=== PATIENT | female | born 1935 | race Caucasian/White ===

== ENCOUNTER 2019-03-31 15:40 | Inpatient (IN) | payer MEDICARE ==
[~2019-03-31] VITALS: Ht 157.5 cm; Wt 55.7 kg
--- NOTE | 2019-03-31 16:30 | NUR ---
[facility]
--- NOTE | 2019-03-31 16:45 | NUR ---
PT PLACED ON ALL ROOM MONITORING. NSR ON MONITOR, RA SAT 94%. WARM BLANKET PROVIDED, CALL LIGHT WITHIN REACH. FAMILY AT BS.
[2019-03-31] MEDS ORDERED: ONDANSETRON 2MG/ML, 2ML ONE (17:12)
--- NOTE | 2019-03-31 17:22 | NUR ---
PT BACK FROM CT. ZOFRAN GIVEN PER ERP ORDER FOR NAUSEA. LAB IN TO DRAW. POC EXPLAINED TO PT AND FAMILY. CALL LIGHT WITHIN REACH.
[2019-03-31 17:35] LABS: BASOPHILS % (AUTO) 0 % (0-1); EOSINOPHILS # (AUTO) 0.18 x10^3/uL (0-0.4); EOSINOPHILS % (AUTO) 2 % (1-7); LYMPHOCYTES # (AUTO) 0.86 x10^3/uL (1-3.4); LYMPHOCYTES % (AUTO) 7 % (22-44); MD NO; MEAN CORPUSCULAR HEMOGLOBIN 32.1 pg (27.0-34.8); MEAN CORPUSCULAR HGB CONC 32.9 g/dL (32.4-35.8); MEAN CORPUSCULAR VOLUME 97.7 fL (80-100); MEAN PLATELET VOLUME 7.5 fL (7.4-10.4); MONOCYTES # (AUTO) 0.47 x10^3/uL (0.2-0.8); MONOCYTES % (AUTO) 4 % (2-9); NEUTROPHILS # (AUTO) 10.32 x10^3/uL (1.8-6.8); NEUTROPHILS % (AUTO) 87 % (42-75); PLATELET COUNT 309 x10^3/uL (130-400); RED BLOOD COUNT 4.36 x10^6/uL (3.82-5.3); RED CELL DISTRIBUTION WIDTH 14.3 % (9.6-15.2)
--- NOTE | 2019-03-31 17:41 | NUR ---
ST CATH FOR UA/COLLECTED/SENT TO LAB.
[2019-03-31 17:42] LABS: ALANINE AMINOTRANSFERASE 15 U/L (12-78); ALBUMIN 2.9 g/dL (3.4-5.0); ANION GAP 8 mmol/L (5-15); CALCIUM 9.2 mg/dL (8.5-10.1); CHLORIDE 103 mmol/L (98-107); INTERNATIONAL NORMALIZED RATIO 0.98 (0.93-1.1); PROTHROMBIN TIME 10.4 Seconds (9.6-11.5)
[2019-03-31 17:45] LABS: ALKALINE PHOSPHATASE 88 U/L (45-117); BILIRUBIN,TOTAL 0.6 mg/dL (0.2-1.0); TOTAL PROTEIN 7.3 g/dL (6.4-8.2)
[2019-03-31] MEDS ORDERED: ESTR0.5T PO (17:45)
[2019-03-31] MEDS ORDERED: METO25TA35 PO (17:45)
[2019-03-31] MEDS ORDERED: ASPI-496 PO (17:45)
[2019-03-31] MEDS ORDERED: AMLO10TA8 PO (17:45)
[2019-03-31] MEDS ORDERED: APIX2.5T PO (17:45)
[2019-03-31 17:53] LABS: MICROSCOPIC AUTO
[2019-03-31 17:55] LABS: CULTURE INDICATED? NO
[2019-03-31] MEDS ORDERED: ONDANSETRON 2MG/ML, 2ML IVPush ONE (18:00)
[2019-03-31] MEDS ORDERED: SODIUM CHLORIDE FLUSH 10ML SYR IVF ONE (18:00)
--- NOTE | 2019-03-31 18:05 | NUR ---
ALL RESULTS BACK, PT FOR RECHECK.
--- NOTE | 2019-03-31 18:18 | NUR ---
PT ASSISTED UP TO BSC. SISTER AT BS.
--- NOTE | 2019-03-31 18:57 | NUR ---
report from mack lunsford
--- NOTE | 2019-03-31 18:58 | NUR ---
pt to be rechecked by JO-ANN Interiano
--- NOTE | 2019-03-31 19:03 | NUR ---
REPORT TO YOBANY, TRANSFER OF CARE AT THIS TIME.
[2019-03-31] MEDS ORDERED: SODIUM CHLORIDE FLUSH 10ML SYR IVF PRN (19:30)
--- NOTE | 2019-03-31 19:30 | NUR ---
pt reports her n/v has improved after IV zofran. pt states she has nausea now only when getting up to the cammode and moving around.
--- NOTE | 2019-03-31 19:30 | NUR ---
Sister Naomy, phone [phone]
--- NOTE | 2019-03-31 19:50 | NUR ---
report to hardeep
[2019-03-31 20:13] VITALS: BP 168/85
--- NOTE | 2019-03-31 20:23 | NUR ---
[facility] chart received. tubed to station 242
[2019-04-01] MEDS ORDERED: SODIUM CHLORIDE 0.9% 1,000 ML IV SCH (00:30)
[2019-04-01] MEDS ORDERED: hydrALAzine 20 MG/ML, 1ML IVPush PRN (00:30)
[2019-04-01] MEDS ORDERED: BISACODYL 10 MG SUPP PR PRN (00:30)
[2019-04-01 01:26] VITALS: BP 141/88
[2019-04-01] MEDS: ONDANSETRON 2MG/ML, 2ML IVPush PRN ×4 (03:21→22:31)
[2019-04-01 05:32] LABS: BASOPHILS # (AUTO) 0.04 x10^3/uL (0-0.1); BASOPHILS % (AUTO) 1 % (0-1); EOSINOPHILS # (AUTO) 0.04 x10^3/uL (0-0.4); EOSINOPHILS % (AUTO) 1 % (1-7); LYMPHOCYTES # (AUTO) 0.75 x10^3/uL (1-3.4); LYMPHOCYTES % (AUTO) 8 % (22-44); MD NO; MEAN CORPUSCULAR HEMOGLOBIN 32.2 pg (27.0-34.8); MEAN CORPUSCULAR HGB CONC 32.7 g/dL (32.4-35.8); MEAN CORPUSCULAR VOLUME 98.5 fL (80-100); MEAN PLATELET VOLUME 7.5 fL (7.4-10.4); MONOCYTES # (AUTO) 0.52 x10^3/uL (0.2-0.8); MONOCYTES % (AUTO) 5 % (2-9); NEUTROPHILS # (AUTO) 8.36 x10^3/uL (1.8-6.8); NEUTROPHILS % (AUTO) 86 % (42-75); PLATELET COUNT 272 x10^3/uL (130-400); RED BLOOD COUNT 4.32 x10^6/uL (3.82-5.3); RED CELL DISTRIBUTION WIDTH 13.8 % (9.6-15.2)
[2019-04-01 05:38] LABS: ANION GAP 6 mmol/L (5-15); CALCIUM 9.7 mg/dL (8.5-10.1); CHLORIDE 104 mmol/L (98-107)
[2019-04-01 05:40] LABS: CREATININE 1.24 mg/dL (0.55-1.02)
[2019-04-01 07:01] VITALS: BP 182/79
[2019-04-01 07:36] VITALS: BP 184/83
[2019-04-01] MEDS ORDERED: AMLODIPINE 10 MG TAB PO SCH (09:00)
[2019-04-01] MEDS ORDERED: METOPROLOL TARTRATE 25 MG TABLET PO SCH (09:00)
[2019-04-01] MEDS ORDERED: APIXABAN 2.5 MG TABLET PO SCH (09:00)
[2019-04-01] MEDS: ASPIRIN 81 MG TABLET EC PO SCH (09:00)
[2019-04-01 09:11] VITALS: BP 161/79
[2019-04-01] MEDS: ESTRADIOL 0.5 MG TABLET PO SCH (10:33)
[2019-04-01] MEDS: SENNA/DOCUSATE TABLET PO SCH (10:33)
[2019-04-01 12:29] VITALS: BP 163/69
[2019-04-01] MEDS ORDERED: PROCHLORPERAZINE 10MG TABLET PO PRN (12:30)
[2019-04-01] MEDS: PANTOPRAZOLE 40 MG IV IVPush SCH (16:23)
[2019-04-01] MEDS ORDERED: DEXAMETHASONE 4 MG/ML, 1ML IVPush ONE (18:00)
[2019-04-01] MEDS ORDERED: GADOTERATE 5 MMOL/10 ML VIAL ONE (18:23)
[2019-04-01 19:17] VITALS: BP 166/69
[2019-04-01] MEDS: METOPROLOL TARTRATE 25 MG TABLET PO SCH (19:30)
[2019-04-01] MEDS: CHLORTHALIDONE 25 MG TABLET PO SCH (20:00)
[2019-04-01] MEDS: DEXAMETHASONE 4 MG/ML, 1ML IVPush SCH (22:08)
[2019-04-01] MEDS: SODIUM CHLORIDE 0.9% 1,000 ML IV SCH (22:10)
[2019-04-02] MEDS: AMLODIPINE 10 MG TAB PO SCH ×2 (00:02→09:42)
[2019-04-02] MEDS: METOPROLOL TARTRATE 25 MG TABLET PO SCH ×3 (00:03→20:34)
[2019-04-02 00:09] VITALS: BP 174/77
[2019-04-02 01:07] VITALS: BP 161/75
[2019-04-02] MEDS: ONDANSETRON 2MG/ML, 2ML IVPush PRN (04:38)
[2019-04-02] MEDS: PANTOPRAZOLE 40 MG IV IVPush SCH ×2 (04:39→18:13)
[2019-04-02] MEDS: DEXAMETHASONE 4 MG/ML, 1ML IVPush SCH ×4 (04:39→22:16)
[2019-04-02 08:00] VITALS: BP 148/68
[2019-04-02] MEDS: ASPIRIN 81 MG TABLET EC PO SCH (09:41)
[2019-04-02] MEDS: CHLORTHALIDONE 25 MG TABLET PO SCH (09:42)
[2019-04-02] MEDS: SENNA/DOCUSATE TABLET PO SCH (09:42)
[2019-04-02] MEDS: ESTRADIOL 0.5 MG TABLET PO SCH (09:43)
[2019-04-02 12:37] VITALS: BP 172/82
[2019-04-02] MEDS: SODIUM CHLORIDE 0.9% 1,000 ML IV SCH (16:25)
[2019-04-02 19:00] VITALS: BP 159/75
[2019-04-02] MEDS: APIXABAN 2.5 MG TABLET PO SCH (20:34)
[2019-04-02] MEDS: COMBIGAN OPTH EACHEYE SCH (20:35)
[2019-04-02] MEDS: LUMIGAN 0.01% EACHEYE SCH (20:35)
[2019-04-02] MEDS: OPTHALMIC EACHEYE SCH (20:35)
[2019-04-03 00:43] VITALS: BP 133/59
[2019-04-03] MEDS: SODIUM CHLORIDE 0.9% 1,000 ML IV SCH ×3 (03:28→22:44)
[2019-04-03] MEDS: DEXAMETHASONE 4 MG/ML, 1ML IVPush SCH ×4 (03:29→21:55)
[2019-04-03 04:31] LABS: MEAN CORPUSCULAR HGB CONC 32.7 g/dL (32.4-35.8); MEAN PLATELET VOLUME 7.7 fL (7.4-10.4); PLATELET COUNT 256 x10^3/uL (130-400); RED BLOOD COUNT 3.67 x10^6/uL (3.82-5.3); RED CELL DISTRIBUTION WIDTH 14.1 % (9.6-15.2)
[2019-04-03 04:35] LABS: ALANINE AMINOTRANSFERASE 61 U/L (12-78); ALBUMIN 2.6 g/dL (3.4-5.0); ANION GAP 9 mmol/L (5-15); CALCIUM 8.8 mg/dL (8.5-10.1); CHLORIDE 107 mmol/L (98-107)
[2019-04-03 04:38] LABS: ALKALINE PHOSPHATASE 91 U/L (45-117); BILIRUBIN,TOTAL 0.5 mg/dL (0.2-1.0); CREATININE 1.16 mg/dL (0.55-1.02); TOTAL PROTEIN 6.2 g/dL (6.4-8.2)
[2019-04-03 04:50] LABS: BASOPHILS # (AUTO) 0.05 x10^3/uL (0-0.1); BASOPHILS % (AUTO) 1 % (0-1); EOSINOPHILS % (AUTO) 0 % (1-7); LYMPHOCYTES # (AUTO) 0.44 x10^3/uL (1-3.4); LYMPHOCYTES % (AUTO) 6 % (22-44); MD SCAN; MONOCYTES # (AUTO) 0.12 x10^3/uL (0.2-0.8); MONOCYTES % (AUTO) 2 % (2-9); NEUTROPHILS # (AUTO) 7.37 x10^3/uL (1.8-6.8); NEUTROPHILS % (AUTO) 92 % (42-75)
[2019-04-03] MEDS: PANTOPRAZOLE 40 MG IV IVPush SCH ×2 (05:59→16:09)
[2019-04-03 06:46] VITALS: BP 151/73
[2019-04-03] MEDS ORDERED: POTASSIUM CHLORIDE 20 MEQ TAB.ER.PRT PO ONE ×2 (08:30→11:30)
[2019-04-03] MEDS: COMBIGAN OPTH EACHEYE SCH ×2 (09:00→20:03)
[2019-04-03] MEDS: APIXABAN 2.5 MG TABLET PO SCH ×2 (09:17→21:55)
[2019-04-03] MEDS: SENNA/DOCUSATE TABLET PO SCH (09:17)
[2019-04-03] MEDS: ESTRADIOL 0.5 MG TABLET PO SCH (09:17)
[2019-04-03] MEDS: AMLODIPINE 10 MG TAB PO SCH (09:18)
[2019-04-03] MEDS: METOPROLOL TARTRATE 25 MG TABLET PO SCH ×2 (09:18→21:55)
[2019-04-03] MEDS: ASPIRIN 81 MG TABLET EC PO SCH (09:18)
[2019-04-03] MEDS: CHLORTHALIDONE 25 MG TABLET PO SCH (09:19)
[2019-04-03] MEDS ORDERED: ACETAMINOPHEN 325 MG TABLET PO PRN (13:00)
[2019-04-03] MEDS ORDERED: TRAZODONE 50MG TABLET PO PRN (13:00)
[2019-04-03 14:29] VITALS: BP 160/78
[2019-04-03 19:55] VITALS: BP 164/67
[2019-04-03] MEDS: LUMIGAN 0.01% EACHEYE SCH (20:09)
[2019-04-03] MEDS: OPTHALMIC EACHEYE SCH (20:09)
[2019-04-04 02:59] VITALS: BP 161/69
[2019-04-04] MEDS: PANTOPRAZOLE 40 MG IV IVPush SCH ×3 (04:43→22:24)
[2019-04-04] MEDS: DEXAMETHASONE 4 MG/ML, 1ML IVPush SCH ×4 (04:43→22:24)
[2019-04-04 04:48] LABS: BASOPHILS % (AUTO) 0 % (0-1); EOSINOPHILS % (AUTO) 0 % (1-7); LYMPHOCYTES # (AUTO) 0.36 x10^3/uL (1-3.4); LYMPHOCYTES % (AUTO) 4 % (22-44); MD NO; MEAN CORPUSCULAR HEMOGLOBIN 32.2 pg (27.0-34.8); MEAN CORPUSCULAR VOLUME 97.4 fL (80-100); MEAN PLATELET VOLUME 7.6 fL (7.4-10.4); MONOCYTES # (AUTO) 0.19 x10^3/uL (0.2-0.8); MONOCYTES % (AUTO) 2 % (2-9); NEUTROPHILS # (AUTO) 8.05 x10^3/uL (1.8-6.8); NEUTROPHILS % (AUTO) 94 % (42-75); PLATELET COUNT 247 x10^3/uL (130-400); RED CELL DISTRIBUTION WIDTH 14.5 % (9.6-15.2)
[2019-04-04 04:59] LABS: ANION GAP 8 mmol/L (5-15); CALCIUM 8.7 mg/dL (8.5-10.1); CHLORIDE 109 mmol/L (98-107); CREATININE 1.14 mg/dL (0.55-1.02)
[2019-04-04 06:43] VITALS: BP 176/80
[2019-04-04] MEDS: COMBIGAN OPTH EACHEYE SCH ×2 (08:01→22:23)
[2019-04-04] MEDS: METOPROLOL TARTRATE 25 MG TABLET PO SCH ×2 (08:02→22:24)
[2019-04-04] MEDS: ASPIRIN 81 MG TABLET EC PO SCH (08:02)
[2019-04-04] MEDS: AMLODIPINE 10 MG TAB PO SCH (08:02)
[2019-04-04] MEDS: APIXABAN 2.5 MG TABLET PO SCH ×2 (08:02→22:24)
[2019-04-04] MEDS: SENNA/DOCUSATE TABLET PO SCH (08:02)
[2019-04-04] MEDS: CHLORTHALIDONE 25 MG TABLET PO SCH (08:02)
[2019-04-04] MEDS: POLYETHYLENE GLYCOL 17 GM PACKET PO PRN (08:03)
[2019-04-04] MEDS: SODIUM CHLORIDE 0.9% 1,000 ML IV SCH ×3 (08:09→22:25)
[2019-04-04] MEDS ORDERED: MAGNESIUM CITRATE 300ML ORAL SOL ONE (11:20)
[2019-04-04] MEDS ORDERED: MAGNESIUM CITRATE 300ML ORAL SOL PO PRN (11:30)
[2019-04-04 12:11] VITALS: BP 129/81
[2019-04-04 12:28] VITALS: BP 155/76
[2019-04-04 20:02] VITALS: BP 173/76
[2019-04-04] MEDS: OPTHALMIC EACHEYE SCH (22:25)
[2019-04-04] MEDS: LUMIGAN 0.01% EACHEYE SCH (22:25)
[2019-04-05 03:54] VITALS: BP 159/82
[2019-04-05] MEDS: DEXAMETHASONE 4 MG/ML, 1ML IVPush SCH ×2 (04:18→09:28)
[2019-04-05 05:00] LABS: ANION GAP 7 mmol/L (5-15); CALCIUM 8.9 mg/dL (8.5-10.1); CHLORIDE 105 mmol/L (98-107)
[2019-04-05 05:01] LABS: CREATININE 1.35 mg/dL (0.55-1.02)
[2019-04-05] MEDS ORDERED: SODIUM CHLORIDE 0.45% 1,000 ML IV SCH (06:30)
[2019-04-05 06:42] VITALS: BP 180/79
[2019-04-05] MEDS: ASPIRIN 81 MG TABLET EC PO SCH (09:28)
[2019-04-05] MEDS: AMLODIPINE 10 MG TAB PO SCH (09:28)
[2019-04-05] MEDS: SENNA/DOCUSATE TABLET PO SCH (09:28)
[2019-04-05] MEDS: CHLORTHALIDONE 25 MG TABLET PO SCH (09:28)
[2019-04-05] MEDS: METOPROLOL TARTRATE 25 MG TABLET PO SCH (09:28)
[2019-04-05] MEDS: APIXABAN 2.5 MG TABLET PO SCH (09:28)
[2019-04-05] MEDS: POLYETHYLENE GLYCOL 17 GM PACKET PO PRN (09:29)
[2019-04-05] MEDS: COMBIGAN OPTH EACHEYE SCH (09:29)
[2019-04-05] MEDS ORDERED: CHLO25TA PO (11:21)
[2019-04-05] MEDS ORDERED: PANT40TA5 PO (11:21)
[2019-04-05] MEDS ORDERED: ONDA4TAB7 PO (11:22)
[2019-04-05] MEDS ORDERED: DEXA4TAB66 PO (11:23)
== END 2019-04-05 13:02 | disposition hospice, home (50) | DRG 640 ==
LOC: ED 19:38 → EDIP 19:45 → 4NE 19:59 → 4NW 04-01 22:44
PROVIDERS: ADMIT Internal Medicine; ATTEND Hospitalist
PROC: 0T9B70Z Drainage of Bladder with Drainage Device, Via Natural or Artificial Opening (ICD-10-PCS; principal; 2019-03-31)
DX: E86.0 Dehydration (principal); G93.6 Cerebral edema; C34.90 Malignant neoplasm of unspecified part of unspecified bronchus or lung; I48.20 Chronic atrial fibrillation, unspecified; D68.69 Other thrombophilia; C79.31 Secondary malignant neoplasm of brain; I10 Essential (primary) hypertension; I48.91 Unspecified atrial fibrillation; Z66 Do not resuscitate; Z79.01 Long term (current) use of anticoagulants
CPT/HCPCS: 36415; 70450; 70553; 71045; 74176; 80048; 80053; 81001; 83605; 83735; 84100; 85025; 85610; 85730; 87040; 93005; 96374; 99285; A9575; G0378; J1100; J2405; Q0164; C9113; J0360; J7030